=== PATIENT | female | born 1985 | race American Indian/Alaskan Native ===

== ENCOUNTER 2017-08-21 07:54 | Emergency (ER) | payer MEDICAID ==
[2017-08-21 07:59] VITALS: O2SAT 100
--- NOTE | 2017-08-21 08:23 | C.PDOC ---
History Of Present Illness 32 y/o female presents to ED with complaints of recurrent right sided headache since yesterday. Patient states she gets frequent headaches and currently headaches are more intense than usual. Patient states pain is localized to right parietal area and states "I have a cyst there and I think it's causing the headaches". Patient was recently evaluated by [facility] for same symptoms, as per patient last evaluation was 6 months ago "they said the size is the same". Patient denies fever, nausea, vomiting, discharge, trauma or any other complaints at this time. RECUR COELLO R SIDE SINCE YEST. PS GETS FREQ COELLO, CURRENT MORE INTENSE THAN USUAL. LOCALIZED R PARIETAL AREA "I HAVE A CYST THERE AND I THINK IT'S CAUSING THE HEADACHES". S/P EVAL @ [facility] FOR SAME, LAST EVAL 6 MO AGO "AND THEY SAID THE SIZE IS THE SAME". NO NV, FEVER, DC, TRAUMA EXAM NAD NONTOXIC HEENT +PALP SCALP SUBCUT MASS FIRM R PARIETAL AREA NO LOCAL TEND, FLUCTUANCE NO PHOTOPHOBIA NEURO INTACT REMAINDER NEG Time Seen by Provider: 08/21/17 08:05 Chief Complaint (Nursing): Headache History Per: Patient History/Exam Limitations: no limitations Onset/Duration Of Symptoms: Days Current Symptoms Are (Timing): Still Present Past Medical History Reviewed: Historical Data, Nursing Documentation, Vital Signs Vital Signs: Last Vital Signs Temp 98 F 08/21/17 10:29 Pulse 94 H 08/21/17 10:29 Resp 18 08/21/17 10:29 BP 138/95 H 08/21/17 10:29 Pulse Ox 100 08/21/17 10:29 - Medical History PMH: No Chronic Diseases Surgical History: Appendectomy Family History: States: No Known Family Hx - Social History Hx Alcohol Use: Yes Hx Substance Use: No - Immunization History Hx Tetanus Toxoid Vaccination: No Hx Influenza Vaccination: No Hx Pneumococcal Vaccination: No Review Of Systems Constitutional: Negative for: Fever, Chills Gastrointestinal: Negative for: Nausea, Vomiting Skin: Negative for: Rash Neurological: Positive for: Headache. Negative for: Weakness, Numbness, Dizziness Physical Exam - Physical Exam Appears: Non-toxic, No Acute Distress Skin: Warm, Dry, No Rash Head: No Tenderness, Other (+palpable scalp subcut mass firm to right parietal area. (-)flunctuance ) Eye(s): bilateral: Normal Inspection ((-)photophobia) Oral Mucosa: Moist Neck: Normal ROM, Supple Cardiovascular: Rhythm Regular Respiratory: Normal Breath Sounds, No Rales, No Rhonchi, No Wheezing Gastrointestinal/Abdominal: Soft, No Tenderness, No Guarding, No Rebound Neurological/Psych: Oriented x3, Normal Speech, Normal Cognition, Normal Motor, Normal Sensation, Other (No focal deficits) Gait: Steady ED Course And Treatment - Laboratory Results Result Diagrams: 08/21/17 09:09 08/21/17 09:09 ECG: Interpreted By Me ECG Rhythm: Sinus Tachycardia ECG Interpretation: Abnormal Rate From EC (bpm) O2 Sat by Pulse Oximetry: 100 (RA) Pulse Ox Interpretation: Normal Progress - Re-Evaluation Re-evaluation Note: 08/21/17 08:51 PT DENIES SOB, DE,CP, LEG PAIN/SWELLING, RECENT PE RISK FACTORS. DX HTN DURING BUT NOT CURRENTLY ON HTN MEDS. NO HO ASTHMA, KNOWN CAD, LUNG DISEASE 08/21/17 10:27 NOW REPORTS FREQ URINATION "FOR MANY YEARS EVER SINCE THEY TOOK OUT MY APPENDIX ". NO DYSURIA, HEMATURIA, FEVER PENDING UA. PS COELLO FEELS BETTER. NEURO INTACT APPEARS COMFORTABLE 08/21/17 10:43 PT ADVISED NEED TO FU PMD FOR TACHYCARDIA UNK CAUSE, CHRONIC POLYURIA - Data Reviewed Data Reviewed: Lab, Diagnostic imaging, EKG, Old records Disposition Counseled Patient/Family Regarding: Studies Performed, Diagnosis, Need For Followup - Disposition Referrals: YOUR,PMD [Other] Disposition: HOME/ ROUTINE Disposition Time: 10:44 Condition: IMPROVED Additional Instructions: YOU HAVE BORDERLINE HYPERTENSION AND ELEVATED HEART RATE (SINUS TACHYCARDIA). YOU HAVE BEEN ADVISED TO FOLLOW UP WITH YOUR PMD FOR FURTHER EVALUATION. Instructions: Migraine Headache (ED), Hypertension (ED) Forms: [employer] (Vietnamese) - Clinical Impression Clinical Impression: Sinus tachycardia, Migraine - Scribe Statement The provider has reviewed the documentation as recorded by the Teresa Ro All medical record entries made by the Curryibe were at my direction and personally dictated by me. I have reviewed the chart and agree that the record accurately reflects my personal performance of the history, physical exam, medical decision making, and the department course for this patient. I have also personally directed, reviewed, and agree with the discharge instructions and disposition.
--- NOTE | 2017-08-21 09:15 | CT ---
PROCEDURE: CT HEAD WITHOUT CONTRAST. HISTORY: COELLO R SCALP CYST COMPARISON: None available. TECHNIQUE: Axial computed tomography images were obtained through the head/brain without intravenous contrast. Radiation dose: Total exam DLP = 1143.1 mGy-cm. This CT exam was performed using one or more of the following dose reduction techniques: Automated exposure control, adjustment of the mA and/or kV according to patient size, and/or use of iterative reconstruction technique. FINDINGS: HEMORRHAGE: No intracranial hemorrhage. BRAIN: No mass effect or edema. No atrophy or chronic microvascular ischemic changes. VENTRICLES: Unremarkable. No hydrocephalus. CALVARIUM: No acute calvarial fractures. Small approximately 17 mm x 8 mm hyperdense partially calcified soft tissue mass density seen in the right posterior superior parietal scalp which may represent a inspissated partially calcified sebaceous cyst. Old healed fracture deformity left lamina papyracea with collapse of the several adjacent left-sided ethmoid air cells and herniation of orbital fat through the wide defect. PARANASAL SINUSES: Unremarkable as visualized. No significant inflammatory changes. MASTOID AIR CELLS: Unremarkable as visualized. No inflammatory changes. OTHER FINDINGS: None. IMPRESSION: No acute intracranial hemorrhage.
[2017-08-21 09:17] LABS: BASO # 0.1 K/uL (0.0-0.2); BASO % 0.7 % (0.0-2.0); EOS # 0.1 K/uL (0.0-0.7); EOS % 0.6 % (0.0-4.0); HEMATOCRIT 39.3 % (34.0-47.0); LYMPH % 17.7 % (20.0-40.0); MEAN CORPUSCULAR HEMOGLOBIN 31.3 pg (27.0-31.0); MEAN CORPUSCULAR HGB CONC 33.6 g/dL (33.0-37.0); MEAN PLATELET VOLUME 8.8 fL (7.2-11.7); MONO # 0.9 K/uL (0.0-0.8); MONO % 8.1 % (0.0-10.0); RED CELL DISTRIBUTION WIDTH 13.8 % (11.5-14.5); WHITE BLOOD COUNT 11.2 K/uL (4.8-10.8)
[2017-08-21 09:29] LABS: CALCIUM 8.3 mg/dl (8.6-10.4); GFR AFRICAN-AMERICAN > 60; GLUCOSE,RANDOM 89 mg/dL (65-105)
[2017-08-21 09:31] LABS: BLOOD UREA NITROGEN 11 mg/dL (7-17); CARBON DIOXIDE 22 mmol/L (22-30); CHLORIDE 99 mmol/L (98-107); SODIUM 134 mmol/L (132-148)
[2017-08-21 10:01] LABS: RBC URINE 1 /hpf (0-3); URINE BACTERIA RARE (<OCC); URINE BILIRUBIN NEGATIVE (NEGATIVE); URINE BLOOD NEGATIVE (NEGATIVE); URINE COLOR Yellow (YELLOW); URINE GLUCOSE (UA) NORMAL (Normal); URINE KETONE NEGATIVE (NEGATIVE); URINE LEUKOCYTE ESTERASE TRACE Leu/uL (Negative); URINE PROTEIN NEGATIVE (NEGATIVE); URINE UROBILINOGEN NORMAL mg/dL (0.2-1.0); WBC URINE 9 /hpf (0-5)
--- NOTE | 2017-08-21 10:04 | RAD ---
PROCEDURE: CHEST RADIOGRAPH, 1 VIEW HISTORY: TACHYCARDIA COMPARISON: None available. FINDINGS: LUNGS: Clear. PLEURA: No pneumothorax or pleural fluid seen. CARDIOVASCULAR: Normal. OSSEOUS STRUCTURES: No significant abnormalities. VISUALIZED UPPER ABDOMEN: Normal. OTHER FINDINGS: None. IMPRESSION: No active disease.
[2017-08-21 10:30] VITALS: BP 138/95; PULSE 94; RESP 18; TEMP 98
== END 2017-08-21 11:00 | disposition home or self-care (01) ==
LOC: C.ER 07:54
DX: R00.0 Tachycardia, unspecified (principal); G43.909 Migraine, unspecified, not intractable, without status migrainosus
CPT/HCPCS: 70450; 71010; 80048; 81001; 85025; 85378; 96372; 99285; J1885; J2765; J3030